=== PATIENT | female | born 1960 | race Hispanic/Latino ===

== ENCOUNTER 2017-03-02 12:36 | Emergency (ER) | payer OTHER ==
[2017-03-02 12:36] VITALS: BMI 28.3
[2017-03-02 12:50] VITALS: TEMP 99.1; O2SAT 95
--- NOTE | 2017-03-02 13:04 | ED PDOC ---
Arrival/HPI - General Chief Complaint: Rib Injury Time Seen by Provider: 03/02/17 12:56 Historian: Patient - History of Present Illness Narrative History of Present Illness (Text): 03/02/17 13:02 56yo female with Past medical history of hypertension present with complaint of right sided anterior ribs s/p trauma 2days ago. states she tripped over her daughter's foot 2days ago and hit the ribs against the daughter's foot. Pain is worse with deep inspiration and palpation. Taking Aleve without relieve. Denies shortness of breath, diaphoresis, any other complaint. Past Medical History - Provider Review Nursing Documentation Reviewed: Yes - Infectious Disease Hx of Infectious Diseases: None - Reproductive Menopause: Yes - Cardiac Hx Hypertension: Yes - Psychiatric Hx Depression: No Hx Emotional Abuse: No Hx Physical Abuse: No Hx Substance Use: No - Past Surgical History Past Surgical History: No Previous - Suicidal Assessment Feels Threatened In Home Enviroment: No Family/Social History - Physician Review Nursing Documentation Reviewed: Yes Family/Social History: Unknown Family HX Smoking Status: Former Smoker Hx Alcohol Use: No Hx Substance Use: No Hx Substance Use Treatment: No Allergies/Home Meds Allergies/Adverse Reactions: Allergies No Known Allergies Allergy (Verified 11/21/13 14:56) Home Medications: Home Meds Medication Instructions Recorded Confirmed Escitalopram [Lexapro] 20 mg PO DAILY 03/02/17 03/02/17 amLODIPine [Norvasc] 5 mg PO DAILY 03/02/17 03/02/17 Review of Systems - Physician Review All systems were reviewed & negative as marked: Yes - Review of Systems Constitutional: Normal Eyes: Normal ENT: Normal Respiratory: Normal Cardiovascular: Normal Gastrointestinal: Normal Genitourinary Female: Normal Musculoskeletal: Arthralgias (right ribs pain) Skin: Normal Neurological: Normal Endocrine: Normal Hemo/Lymphatic: Normal Psychiatric: Normal Physical Exam Vital Signs Reviewed: Yes Vital Signs Temp Pulse Resp BP Pulse Ox 03/02/17 14:47 70 16 129/94 H 03/02/17 12:46 99.1 F 95 H 20 154/100 H 95 Temperature: Afebrile Blood Pressure: Hypertensive Pulse: Regular Respiratory Rate: Normal Appearance: Positive for: Well-Appearing, Non-Toxic, Comfortable Pain Distress: None Mental Status: Positive for: Alert and Oriented X 3 - Systems Exam Head: Present: Atraumatic, Normocephalic Pupils: Present: PERRL Extroacular Muscles: Present: EOMI Conjunctiva: Present: Normal Mouth: Present: Moist Mucous Membranes Neck: Present: Normal Range of Motion Respiratory/Chest: Present: Clear to Auscultation, Good Air Exchange, Tender to Palpation (right anterior ribs). No: Respiratory Distress, Accessory Muscle Use , Wheezes, Decreased Breath Sounds, Rales, Retracting, Rhonchi Cardiovascular: Present: Regular Rate and Rhythm, Normal S1, S2. No: Murmurs Abdomen: Present: Normal Bowel Sounds. No: Tenderness, Distention, Peritoneal Signs Back: Present: Normal Inspection Upper Extremity: Present: Normal Inspection. No: Cyanosis, Edema Lower Extremity: Present: Normal Inspection. No: Edema Neurological: Present: GCS=15, CN II-XII Intact, Speech Normal Skin: Present: Warm, Dry, Normal Color. No: Rashes Psychiatric: Present: Alert, Oriented x 3, Normal Insight, Normal Concentration Medical Decision Making ED Course and Treatment: 03/02/17 18:46 Right ribs/chest xray - No acute fracture. No PTX. Result was DW the pt. She was DW home with a rx of Naprosyn and flexeril Referred to her PMD. TRT Emergency department for any new or worsening symptoms - RAD Interpretation Radiology Orders: 03/02/17 13:01 RIBS RIGHT & PA CHEST [RAD] Stat - Medication Orders Current Medication Orders: Discontinued Medications Ketorolac Tromethamine (Toradol) 60 mg IM STAT STA Stop: 03/02/17 13:02 Last Admin: 03/02/17 13:10 Dose: 60 mg MAR Pain Assessment Document 03/02/17 13:10 CHRIS (Rec: 03/02/17 13:12 CHRIS [id number]) Pain Reassessment Is this a pain reassessment? Yes Presence of Pain Presence of Pain Yes Pain Scale Used Pain Scale Used Numeric Description Description Sharp Intensity of Pain at present 10 IM Administration Charges Document 03/02/17 13:10 CHRIS (Rec: 03/02/17 13:12 CHRIS [id number]) Injection Site MAR Injection Site Right Deltoid Charges for Administration # of IM Administrations 1 Disposition/Present on Arrival - Present on Arrival Any Indicators Present on Arrival: No History of DVT/PE: No History of Uncontrolled Diabetes: No Urinary Catheter: No History of Decub. Ulcer: No History Surgical Site Infection Following: None - Disposition Have Diagnosis and Disposition been Completed?: Yes Diagnosis: Rib sprain Disposition: HOME/ ROUTINE Disposition Time: 14:15 Patient Plan: Discharge Condition: STABLE Discharge Instructions (ExitCare): Rib Contusion (ED) Additional Instructions: Follow up with your doctor Return to Emergency department for any new or worsening symptoms Prescriptions: Cyclobenzaprine [Cyclobenzaprine HCl] 10 mg PO DAILY #10 tab Naproxen [Naprosyn] 500 mg PO BID #20 tablet Referrals: Shanon Mayberry MD [Primary Care Provider] - Follow up with primary Forms: [employer] (American)
--- NOTE | 2017-03-02 14:01 | RAD ---
PROCEDURE: Radiographs of the Chest and Right Ribs. HISTORY: rib pain COMPARISON: None available. TECHNIQUE: Frontal radiograph of the chest and multiple oblique radiographs of the right ribs were obtained. FINDINGS: RIGHT RIBS: No fracture or focal lesion visualized. LUNGS: Clear. PLEURA: No pneumothorax or pleural fluid. CARDIOVASCULAR: Normal sized heart. No pulmonary vascular congestion. OTHER FINDINGS: None. IMPRESSION: Unremarkable radiographs of the chest and right ribs. No right rib fracture.
[2017-03-02 14:49] VITALS: BP 129/94; PULSE 70; RESP 16
== END 2017-03-02 14:47 | disposition home or self-care (01) ==
LOC: ED 12:36
DX: S23.41XA Sprain of ribs, initial encounter (principal); W01.198A Fall on same level from slipping, tripping and stumbling with subsequent striking against other object, initial encounter; Y92.89 Other specified places as the place of occurrence of the external cause
CPT/HCPCS: 71101; 96372; 99282; J1885

== ENCOUNTER 2017-10-12 20:33 | Emergency (ER) | payer OTHER ==
[2017-10-12 20:41] VITALS: RESP 16
[2017-10-12 20:42] VITALS: BMI 26.1
[2017-10-12] MEDS ORDERED: TDAP Vaccine 0.5 mL Syr IM ONE (21:12)
[2017-10-12] MEDS ORDERED: Lidocaine/Epi 1% 1:100000 20 ML IJ ONE (21:12)
--- NOTE | 2017-10-12 21:13 | ED PDOC ---
Arrival/HPI - General Chief Complaint: Abnormal Skin Integrity Time Seen by Provider: 10/12/17 21:11 Historian: Patient, Spouse - History of Present Illness Narrative History of Present Illness (Text): 10/12/17 21:12 This 56 yo female presents to this ED c/o right hand laceration x 8 hours. Patient stated she accidentally cut her hand with a piece of metal of a microwave at work. Last tetanus is UKN. Patient is right hand dominant. Wound continues bleeding. Denies other somatic complains. Time/Duration: Other (see hpi) Context: Work Past Medical History - Provider Review Nursing Documentation Reviewed: Yes - Infectious Disease Hx of Infectious Diseases: None - Reproductive Menopause: Yes - Cardiac Hx Cardiac Disorders: Yes Hx Hypertension: Yes - Pulmonary Hx Respiratory Disorders: Yes Hx Asthma: Yes Hx Chronic Obstructive Pulmonary Disease (COPD): Yes - Neurological Hx Neurological Disorder: No - HEENT Hx HEENT Disorder: No - Renal Hx Renal Disorder: No - Endocrine/Metabolic Hx Endocrine Disorders: No - Hematological/Oncological Hx Blood Disorders: No - Integumentary Hx Dermatological Disorder: No - Musculoskeletal/Rheumatological Hx Musculoskeletal Disorders: No - Gastrointestinal Hx Gastrointestinal Disorders: No - Genitourinary/Gynecological Hx Genitourinary Disorders: No - Psychiatric Hx Psychophysiologic Disorder: No Hx Substance Use: No - Past Surgical History Past Surgical History: No Previous - Suicidal Assessment Feels Threatened In Home Enviroment: No Family/Social History - Physician Review Nursing Documentation Reviewed: Yes Family/Social History: Other (noncontributory) Smoking Status: Former Smoker Hx Alcohol Use: No Hx Substance Use: No Hx Substance Use Treatment: No Allergies/Home Meds Allergies/Adverse Reactions: Allergies No Known Allergies Allergy (Verified 10/12/17 20:42) Home Medications: Home Meds Medication Instructions Recorded Confirmed Escitalopram [Lexapro] 20 mg PO DAILY 03/02/17 10/12/17 amLODIPine [Norvasc] 5 mg PO DAILY 03/02/17 10/12/17 Review of Systems - Review of Systems Constitutional: Normal. absent: Fatigue, Weight Change, Fevers Eyes: Normal ENT: Normal Respiratory: Normal Cardiovascular: Normal Gastrointestinal: Normal Genitourinary Female: Normal Musculoskeletal: Normal Skin: Other (right hand laceration) Neurological: Normal Endocrine: Normal Hemo/Lymphatic: Normal Psychiatric: Normal Physical Exam Vital Signs Temp Pulse Resp BP Pulse Ox 10/12/17 22:10 97.8 F 88 16 140/77 96 10/12/17 20:40 98.5 F 91 H 16 155/100 H 95 Temperature: Afebrile Blood Pressure: Normal Pulse: Regular Respiratory Rate: Normal Appearance: Positive for: Well-Appearing, Non-Toxic, Comfortable Pain Distress: None Mental Status: Positive for: Alert and Oriented X 3 - Systems Exam Head: Present: Atraumatic, Normocephalic Pupils: Present: PERRL Mouth: Present: Moist Mucous Membranes Neck: Present: Normal Range of Motion Upper Extremity: Present: Normal ROM, NORMAL PULSES, Neurovascularly Intact, Capillary Refill < 2s, Other ((+) right hand laceration, approx. ). No: Cyanosis, Edema, Tenderness, Swelling Lower Extremity: Present: Normal Inspection, NORMAL PULSES Neurological: Present: GCS=15, CN II-XII Intact, Speech Normal Skin: Present: Warm, Dry, Normal Color. No: Rashes Psychiatric: Present: Alert, Oriented x 3, Normal Insight, Normal Concentration Medical Decision Making ED Course and Treatment: 10/12/17 22:12 Re-evaluation. Patient feels better. Discussed results and plan with patient who expresses understanding. All questions answered and there is agreement with the plan to discharge home with instructions. Patient stable for discharge. Return if symptoms persist or worsen. Re-evaluation Time: 22:12 Reassessment Condition: Re-examined, Improved - Medication Orders Current Medication Orders: Discontinued Medications Lidocaine/Epinephrine (Lidocaine 1%/Epinephrine 1:545601 30 Ml) 3 ml IJ ONCE ONE Stop: 10/12/17 21:16 Last Admin: 10/12/17 21:52 Dose: 3 ml Comments: given to Tammi APPIAH Tetanus/Reduced Diphtheria/Acell Pertussis (Boostrix Vaccine Inj) 0.5 ml IM .ONCE ONE Stop: 10/12/17 21:13 Last Admin: 10/12/17 21:40 Dose: 0.5 ml Immunization Registry Document 10/12/17 21:40 [id number] (Rec: 10/12/17 21:52 [email or web address] [id number]) Immunization Registry Consent Date 10/12/17 - Procedure PROCEDURE NOTE (Text): 10/12/17 22:13 PROCEDURE: LACERATION REPAIR Performed by the emergency provider Location: right hand laceration Length: 1.8 cm Description: clean wound edges , no foreign bodies, irregualr shape Distal CMS: Normal. No deficits. Neurovascularly intact. Anesthesia: Lidocaine 1% with Epi, approx. 2 cc Preparation: The wound was cleaned with NS and [place]. The area was prepped and draped in the usual sterile fashion. Exploration: The wound was explored and no foreign bodies were found. Procedure: The wound was closed with Vicryl, interrupted, single layer, 5-0. There was good approximation. In total, 3 sutures were used. Post-Procedure: Good closure and hemostasis. The patient tolerated the procedure well and there were no complications. CSM remains intact. Post procedure dressing applied. Disposition/Present on Arrival - Present on Arrival Any Indicators Present on Arrival: No History of DVT/PE: No History of Uncontrolled Diabetes: No Urinary Catheter: No History of Decub. Ulcer: No History Surgical Site Infection Following: None - Disposition Have Diagnosis and Disposition been Completed?: Yes Diagnosis: Laceration Disposition: HOME/ ROUTINE Disposition Time: 22:15 Patient Plan: Discharge Condition: IMPROVED Discharge Instructions (ExitCare): Laceration Repair Additional Instructions: Call private doctor for follow up visit and wound recheck in 2-3 days. Keep wound clean and dry for 2 days, then clean wound daily with soap and water daily. Return to emergency if wound becomes infected, or if sutures still presents after 2 weeks. Prescriptions: Ibuprofen [Motrin] 400 mg PO Q8H PRN #20 tab PRN Reason: Pain, Severe (8-10) Referrals: Shanon Mayberry MD [Family Provider] - Follow up with primary Forms: [employer] (Haitian), WORK NOTE
[2017-10-12] MEDS ORDERED: Lidocaine 1%/Epinephrine 1:100000 30 ml vial IJ ONE (21:15)
[2017-10-12 22:23] VITALS: BP 140/77; PULSE 88; TEMP 97.8; O2SAT 96
== END 2017-10-12 22:23 | disposition home or self-care (01) ==
LOC: ED 20:33
DX: S61.411A Laceration without foreign body of right hand, initial encounter (principal); W45.8XXA Other foreign body or object entering through skin, initial encounter; Y92.89 Other specified places as the place of occurrence of the external cause; Y99.0 Civilian activity done for income or pay; Z23 Encounter for immunization